=== PATIENT | female | born 1950 | race Caucasian/White ===

== ENCOUNTER 2018-12-24 09:21 | Day surgery (SDC) | payer OTHER ==
--- OUTSIDE RECORDS SUMMARY | 2018-12-24 09:25 | XMS REPORT | Clinical Summary ---
:1950 Author Organization [facility] [employer] Address [address] [place] [address] Care Team Providers Name Role Phone Medardo Talavera MD Primary Care Provider Allergies No Known Allergies Medications Medication Sig Dispensed Refills Start Date End Date Status glimepiride (AMARYL) 4 TK 1 T PO BID. 1 12/07/2016 Active MG tablet LANTUS SOLOSTAR 100 Inject 30 Units 1 10/22/2016 Active unit/mL injection (pen) under the skin daily before lunch. levothyroxine TK 1 T PO QD in 1 10/01/2016 Active (SYNTHROID, LEVOXYL) 125 the AM. mcg tablet lisinopril TK 1 T PO 1 X 1 12/05/2016 Active (PRINIVIL,ZESTRIL) 5 mg daily in the AM. tablet metFORMIN (GLUCOPHAGE) TK 1 T PO BID. 1 12/07/2016 Active 1,000 mg tablet simvastatin (ZOCOR) 40 TK 1 T PO HS. 1 11/21/2016 Active MG tablet multivitamin with Take 1 tablet by 0 Active minerals tablet mouth daily. fenofibrate (LOFIBRA) 54 TK 1 T PO QD. 2 03/17/2017 Active MG tablet gabapentin (NEURONTIN) TK 1 C PO TID. 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 Diabetes 12/16/2016 Thyroid disease 12/16/2016 Family History Medical History Relation Name Comments Heart disease Father Diabetes Mother Gallbladder disease Mother Relation Name Status Comments Father Mother Social History Tobacco Use Types Packs/Day Years Used Date Former Smoker Cigarettes 1 40 Quit: 12/19/2004 Smokeless Tobacco: Never Used Tobacco Cessation: Counseling Given: No Alcohol Use Drinks/Week oz/Week Comments No Sex Assigned at Date Recorded Not on file Job Start Date Occupation Industry Not on file Not on file Not on file Travel History Travel Start Travel End No recent travel history available. Last Filed Vital Signs Not on file Plan of Treatment Health Maintenance Due Date Last Done Comments DIABETIC RETINAL EYE EXAM 1950 DIABETIC FOOT EXAM 1961 URINE MICROALBUMIN 1961 BREAST CANCER SCREENING 2001 COLON CANCER SCREENING 2001 SHINGLES VACCINES (#1) 2001 65+ PNEUMOCOCCAL VACCINE (1 of 2 - PCV13) 2016 PNEUMOCOCCAL POLYSACCHARIDE VACCINE AGE 65 AND OVER 2016 INFLUENZA VACCINE 03/07/2019 Implants Implanted Type Area Computer Programmer Chief Device Shelf Model / Identifier Expiration Serial / Date Lot Kit Putty Bone 1.5ml Mastergraft - [id number] Human Tissue Anterior: MEDTRONIC 03/06/2020 [id number] / Implanted: Qty: 1 on 01/04/2017 by Rob Morris MD Implants Spine SPINAL AND / Cervical BIOLOGICS [id number] Putty Clgn Mastergraft Cer 0.75cc - [id number] Human Tissue Anterior: [employer]TR[employer] 03/06/2020 [id number] / Implanted: Qty: 1 on 01/04/2017 by Rob Morris MD Implants Spine SPINAL AND / Cervical BIOLOGICS [id number] Cage Anatomic Ptc [id number] - [id number] - [id number] IPM IMPLANT Anterior: MEDTRONIC 10/13/2024 [id number] / Implanted: Qty: 1 on 01/04/2017 by Rob Morris MD DEVICES Spine SOFAMOR DANEK [id number] / Cervical 75DK Cage [id number] Anatomic Ptc [id number] - [id number] - [id number] IPM IMPLANT Anterior: MEDTRONIC 08/11/2024 [id number] / Implanted: Qty: 1 on 01/04/2017 by Rob Morris MD DEVICES Spine SOFAMOR DANEK [id number] / Cervical 53DB Cage Anatomic Ptc [id number] - [id number] - [id number] IPM IMPLANT Anterior: MEDTRONIC 10/13/2024 [id number] / Implanted: Qty: 1 on 01/04/2017 by Rob Morris MD DEVICES Spine SOFAMOR DANEK [id number] / Cervical 75DK Pin Distrctn Murdock 12mm Strl - [id number] Neurosurgical Anterior: AESCULAP SPINE 09/06/2021 [id number] / Implanted: Qty: 3 on 01/04/2017 by Rob Morris MD Implants Spine / Cervical [id number] Plate Cerv 62.5mm Vesper Elite - [id number] Spinal Implants N/A: N/A MEDTRONIC [id number] / Implanted: Qty: 1 on 01/04/2017 by Rob Morris MD SPINAL AND / BIOLOGICS Screw Spinal Slf-Drl V-Ang 4x16mm - [id number] Spinal Implants N/A: N/A [employer]IC [id number] / Implanted: Qty: 1 on 01/04/2017 by Rob Morris MD SPINAL AND / BIOLOGICS Screw Spinal Slf-Drl V-Ang 4x16mm - [id number] Spinal Implants N/A: N/A MEDTRONIC [id number] / Implanted: Qty: 7 on 01/04/2017 by Rob Morris MD SPINAL AND / BIOLOGICS Matrix Hmstc Floseal 10ml W/ Humn F2 - [id number] Surgical Anterior: CHUNG 06/06/2018 [id number] / Implanted: Qty: 1 on 01/04/2017 by Rob Morris MD Implants; Spine BIOSCIENCE / Expanders; Cervical [id number] Extenders; Surgical Wires Results Not on fileafter 12/23/2017 Guarantor Name Account Type Relation to Date of Phone Billing Patient Address Viridiana Vital Personal/Family Self 1950 [phone] [address] (Home) [place] [address] Advance Directives Patient has advance care planning documents, and code status on file. For more information, please contact:[place] [address] Code Status Date Activated Date Inactivated Comments Full Code 01/04/2017 1:42 PM 01/06/2017 7:24 PM Code Status decision reached by: Patient
[2018-12-24] MEDS ORDERED: NA CHLORIDE 0.9% 500 ML ONE (10:03)
[2018-12-24] MEDS ORDERED: PHENYLEPHRINE 10% OPTH 5ML ONE (10:03)
[2018-12-24] MEDS ORDERED: LIDOCAINE 2% MPF 5 ML VIAL ONE (10:03)
[2018-12-24] MEDS ORDERED: CYCLOPENTOLATE 1% OPTH 2 ML ONE (10:04)
[2018-12-24] MEDS ORDERED: TETRACAINE HCL 0.5% 4ML OPTH ONE (10:04)
[2018-12-24] MEDS ORDERED: BUPIVACAINE 0.25% PF 10 ML VIAL ONE (10:04)
[2018-12-24] MEDS ORDERED: CYCLOPENTOLATE 1% OPTH 2 ML OPTH ONE ×2 (10:08→10:13)
[2018-12-24] MEDS ORDERED: PHENYLEPHRINE 10% OPTH 5ML OPTH ONE ×2 (10:08→10:13)
[2018-12-24] MEDS ORDERED: NS 0.9% VIAL 10 ML ONE (10:52)
[2018-12-24] MEDS ORDERED: DUOVISC 1 KIT OPTH ONE (10:52)
[2018-12-24] MEDS ORDERED: MOXIFLOXACIN HCL 10 DROPS/ML **OR USE OPTH ONE (10:53)
[2018-12-24] MEDS ORDERED: EPINEPHRINE/PF 1 MG/ML AMP ONE ×2 (10:53→13:26)
[2018-12-24] MEDS: EPINEPHRINE/PF 1 MG/ML AMP ONE ×2 (11:03→11:36)
[2018-12-24] MEDS: BALANCED SALT IRRIG PLAIN 500 ML BTL IRR ONE ×2 (11:03→11:36)
[2018-12-24] MEDS ORDERED: LIDOCAINE 1% MPF 5 ML VIAL ONE (11:35)
[2018-12-24] MEDS ORDERED: PROPOFOL 200 MG/20 ML VIAL IV ONE (11:35)
--- NOTE | 2018-12-24 12:01 | P.BOP ---
Preoperative diagnosis: Nuclear sclerotic and cortical cataract OD Postoperative diagnosis: Same Primary procedure: Phacoemulsification with IOL OD Estimated blood loss: None Anesthesia: Local (Subtenon's infusion with anesthesia for cataract surgery) Complications: None Implants: [id number] +22.0 Transferred to: Other (Day surgery) Condition: Good
[2018-12-24 15:49] VITALS: BP 101/52; TEMP 98.5; O2SAT 100
--- NOTE | 2018-12-24 22:54 | OP ---
Date of Procedure: 12/24/2018 Surgeon: Cherie Zepeda MD Anesthesiologist: 1. Benito Jose CRNA. 2. Miguel A Delgado MD. Preoperative Diagnosis: Nuclear sclerotic cataract and cortical cataract, right eye. Operation Performed: Phacoemulsification with intraocular lens implant, right eye. Anesthesia: Per cataract surgery. Complications: None. Description Of Procedure: In day surgery, the patient was prepped with Betadine and draped. A conju nctival incision was made in the inferior nasal quadrant with Jemima scissors. A sub-Tenon block c onsisting of a 1:1 mixture of 2% Xylocaine and 0.25% bupivacaine was placed through the conjunctival incision with a blunt cannula. A Honan balloon was placed over the eye and the patient was transferr ed to the operating room. In the operating room the patient was prepped and draped in the usual sterile fashion for ophthalmic surgery. A lid speculum was placed in the right eye. Two paracentesis sites were made superiorly an d inferiorly in the limbal cornea. Viscoat was placed in the anterior chamber and a crescent blade w as used to make a corneal groove and tunnel, and a keratome was used to enter the anterior chamber. Provisc was placed in the anterior chamber and a 360 degree capsulotomy was performed with a cystitom e. The lens was hydrodissected with BSS and rotated freely. The lens was removed with a stop and ch op technique. 9.3 phaco CDE was used to remove the lens. Residual cortex was removed with the irrig ation and aspiration. Provisc was placed in the capsular bag. A ZCB00 +22.0 lens was placed in the capsular bag without complications. Irrigation and aspiration was used to remove residual viscoelast ic. The paracentesis sites were hydrated with BSS. The wound and paracentesis sites were inspected and found to be watertight. Vigamox 0.07 cc was placed intracamerally at the end of the procedure. The eye was irrigated with balanced salt solution. The eye was patched with a soft cotton patch and Hayden metal shield. The patient was returned to day surgery in good condition. Comments: 1:5000 epinephrine was placed prior to Viscoat and throughout the procedure. Discharge Instructions: Ms. Vital is discharged to home in good condition and is to follow up with Dr. Zepeda in the morning. JHL/TITUS Voice ID: [id number] Report ID: [id number]
== END 2018-12-24 13:07 | disposition home or self-care (01) ==
LOC: OR 09:21
PROVIDERS: ATTEND Ophthalmology Retina Specialist
PROC: 08RJ3JZ Replacement of Right Lens with Synthetic Substitute, Percutaneous Approach (ICD-10-PCS; principal; 2018-12-24 10:30)
DX: H25.11 Age-related nuclear cataract, right eye (principal); H25.011 Cortical age-related cataract, right eye; Z87.891 Personal history of nicotine dependence; E11.9 Type 2 diabetes mellitus without complications; E78.00 Pure hypercholesterolemia, unspecified; E07.9 Disorder of thyroid, unspecified; I10 Essential (primary) hypertension; G25.81 Restless legs syndrome; Z79.4 Long term (current) use of insulin; Z79.82 Long term (current) use of aspirin; Z79.899 Other long term (current) drug therapy
CPT/HCPCS: 66984; 82962; J2704; J0171 ×3

== ENCOUNTER 2024-10-06 19:16 | Emergency (ER) | payer OTHER ==
[2024-10-06] MEDS ORDERED: MORPHINE 2 MG/ML SYR ONE (19:54)
[2024-10-06 19:58] LABS: Absolute Basophils 0.1 K/uL (0-0.5); Absolute Lymphocytes (CBC) 1.3 K/uL (0.7-4.9); Absolute Monocytes 0.6 K/uL (0.1-1.3); Absolute Neutrophil 8.6 K/uL (1.8-8.0); Basophils % 0.5 % (0-1.3); Eosinophils % 0.4 % (0-4.4); Hematocrit 40.8 % (36.0-45.0); Hemoglobin 13.6 g/dL (12.0-15.0); Lymphocytes % 12.2 % (15.3-44.8); MCH 28.3 pg (27.0-35.0); MCHC 33.4 g/dL (32.0-36.0); MCV 84.7 fL (80-100); MPV 8.4 fL (7.6-11.3); Monocytes % 5.9 % (3.3-12.3); Nucleated Red Blood Cells % 0.1 % (0-0); Platelets 297 thou/uL (152-406); RBC Red Blood Cell Count 4.81 M/uL (3.86-4.86); Red Cell Distribution Width 14.6 % (12.1-15.2)
[2024-10-06] MEDS ORDERED: ONDANSETRON 4 MG/2 ML VIAL ONE (19:58)
[2024-10-06 20:06] LABS: PT Prothrombin Time 10.7 SECONDS (10.0-13.0); Protime INR 0.94
--- NOTE | 2024-10-06 20:10 | RAD REPORT ---
EXAMINATION: ONE VIEW CHEST XR CLINICAL INDICATION: CHEST PAIN TECHNIQUE: Frontal chest projection is submitted. Examination is limited by patient positioning and t echnique. COMPARISON: 11/30/2021 FINDINGS: Interstitial markings are mildly prominent. No focal consolidation typical of bacterial pneumonia. Th e heart is upper limit of normal in size. No displaced fractures identified. Cervical hardware plate. IMPRESSION: Consider viral pneumonitis or reactive airway disease.
[2024-10-06 20:18] LABS: ALT/SGPT 29 U/L (13-56); AST/SGOT 22 U/L (15-37); Albumin 3.6 g/dL (3.4-5.0); Albumin/Globulin Ratio 0.9 (1.1-1.8); Alkaline Phosphatase 85 U/L (45-117); Anion Gap 7.3 mEq/L (5.0-15.0); BUN Blood Urea Nitrogen 28 mg/dL (7-18); Bicarbonate 31 mEq/L (21-32); Bilirubin Total 0.3 mg/dL (0.2-1.0); Globulin 3.9 g/dL (2.3-3.5); Glomerular Filtration Rate 56 ml/min (=/>90); Glucose Level 147 mg/dL (74-106); Magnesium 2.2 mg/dL (1.6-2.4); NT PRO-BNP 139 pg/mL (<125); Potassium 4.3 mEq/L (3.5-5.1); Protein, Total 7.5 g/dL (6.4-8.2); Sodium Level 138 mEq/L (136-145); Troponin High Sensitivity 5.1 pg/mL (<58.9)
[2024-10-06 20:22] LABS: Bilirubin Direct < 0.2 mg/dL (0-0.2); Bilirubin Indirect, Calculated 0.1 mg/dL (0.2-0.8)
[2024-10-06 20:49] LABS: Influenza A Ag Negative; Influenza B Ag Negative; SARS-CoV-2 Antigen Rapid Res Negative (Negative)
--- NOTE | 2024-10-06 21:03 | RAD REPORT ---
EXAMINATION: CTA CHEST PE CLINICAL INDICATION: CHEST PAIN TECHNIQUE: This examination was performed according to an angiographic protocol with 3D post-processi ng. This involves 3D reconstructions, MIPs, volume rendered images and/or shaded surface rendering. One or more of the following dose reduction techniques were used: Automated exposure control, adjustm ent of the mA and/or kV according to patient size, and/or iterative reconstruction. Unless otherwise specified, incidental findings do not require dedicated imaging follow-up. COMPARISON: No prior exam. FINDINGS: PULMONARY ARTERIES: Normal caliber. No evidence of pulmonary emboli to the subsegmental level. THORACIC AORTA: Normal caliber and configuration. LUNGS: No evidence of airspace or interstitial process. No nodules. PLEURA: No pleural effusion. No pneumothorax. MEDIASTINUM AND LYMPH NODES: No mediastinal mass or fluid collection. Normal size mediastinal, hilar, and axillary lymph nodes. OSSEOUS STRUCTURES AND CHEST WALL: Intact. UPPER ABDOMEN: No significant abnormalities. IMPRESSION: No evidence of pulmonary emboli to the subsegmental level.
[2024-10-06] MEDS ORDERED: ALBUTEROL 2.5 MG/3 ML NEB SOL ONE (21:14)
[2024-10-06] MEDS ORDERED: IPRATROPIUM BROM 0.5MG/2.5ML ONE (21:14)
[2024-10-06] MEDS ORDERED: KETOROLAC 30 MG/ML INJ ONE (21:15)
--- NOTE | 2024-10-06 21:24 | EDPHYS ---
Physician Documentation [facility] Name: Viridiana Vital Age: 74 yrs Sex: Female : 1950 Arrival Date: 10/06/2024 Time: 19:16 Bed 18 Private MD: ED Physician Flory Park HPI: 10/06 19:58 This 74 yrs old Female presents to ER via Ambulatory with complaints of UPPER BACK sp3 PAIN, Epigastric Pain, Chest Pain. 19:58 74-year-old female with history of diabetes now presents with epigastric pain, chest sp3 pain radiating to her back. The radiation goes to the mid back. She denies any fever, neck pain, lower abdominal pain, vomiting, diarrhea, or any other signs or symptoms on ROS at this time. Denies any travel history or prolonged immobilization. No prior history of DVT or PE or TAD.. Historical: - Allergies: 19:30 No Known Allergies; bm8 - Home Meds: 19:30 Unable to obtain [Active]; bm8 - PMHx: 19:30 Diabetes mellitus; bm8 - PSHx: 19:30 neck; section; bm8 - Immunization history:: Adult Immunizations up to date. - Infectious Disease History:: Denies. - Social history:: Smoking status: Patient denies any tobacco usage or history of. ROS: 19:58 Constitutional: Negative for fever, chills, and weight loss, Eyes: Negative for injury, sp3 pain, redness, and discharge, ENT: Negative for injury, pain, and discharge, Neck: Negative for injury, pain, and swelling, Respiratory: Negative for shortness of breath, cough, wheezing, and pleuritic chest pain, : Negative for injury, bleeding, discharge, and swelling, MS/Extremity: Negative for injury and deformity, Skin: Negative for injury, rash, and discoloration, Neuro: Negative for headache, weakness, numbness, tingling, and seizure, Psych: Negative for depression, anxiety, suicide ideation, homicidal ideation, and hallucinations, Allergy/Immunology: Negative for hives, rash, and allergies, Endocrine: Negative for neck swelling, polydipsia, polyuria, polyphagia, and marked weight changes, Hematologic/Lymphatic: Negative for swollen nodes, abnormal bleeding, and unusual bruising, 19:58 All other systems are negative, Exam: 19:59 Constitutional: This is a well developed, well nourished patient who is awake, alert, sp3 and in no acute distress. Head/Face: Normocephalic, atraumatic. Eyes: Pupils equal round and reactive to light, extra-ocular motions intact. Lids and lashes normal. Conjunctiva and sclera are non-icteric and not injected. Cornea within normal limits. Periorbital areas with no swelling, redness, or edema. Neck: Trachea midline, no thyromegaly or masses palpated, and no cervical lymphadenopathy. Supple, full range of motion without nuchal rigidity, or vertebral point tenderness. No Meningismus. Chest/axilla: Normal chest wall appearance and motion. Nontender with no deformity. No lesions are appreciated. Cardiovascular: Regular rate and rhythm with a normal S1 and S2. No gallops, murmurs, or rubs. Normal PMI, no JVD. No pulse deficits. Respiratory: Lungs have equal breath sounds bilaterally, clear to auscultation and percussion. No rales, rhonchi or wheezes noted. No increased work of breathing, no retractions or nasal flaring. Back: No spinal tenderness. No costovertebral tenderness. Full range of motion. Skin: Warm, dry with normal turgor. Normal color with no rashes, no lesions, and no evidence of cellulitis. MS/ Extremity: Pulses equal, no cyanosis. Neurovascular intact. Full, normal range of motion. Neuro: Awake and alert, GCS 15, oriented to person, place, time, and situation. Cranial nerves II-XII grossly intact. Motor strength 5/5 in all extremities. Sensory grossly intact. Cerebellar exam normal. Normal gait. 19:59 Abdomen/GI: Mild pain to palpation epigastrically however patient's pain is worse when she lays down without any palpation from me. Lung sounds equal bilaterally. Cardiac exam is normal., 20:08 ECG was reviewed by the Attending Physician. EKG demonstrates sinus bradycardia 56 bpm sp3 with normal intervals, normal QRS, normal axis, and normal ST/T-segment's without evidence of acute ischemia. Vital Signs: 19:29 BP 129 / 103; Pulse 61; Resp 18; Temp 97.6; Pulse Ox 100% ; Weight 89.36 kg; Height 5 bm8 ft. 6 in. ; Pain 8/10; 20:00 BP 121 / 54; Pulse 60; Resp 12; Pulse Ox 96% ; me1 21:00 BP 154 / 52; Pulse 55; Resp 13; Pulse Ox 100% ; me1 21:42 Pain 3/10; me1 21:42 BP 148 / 68; Pulse 63; Resp 16; Temp 98.2; Pulse Ox 93% on R/A; me1 19:29 Body Mass Index 31.80 (89.36 kg, 167.64 cm) bm8 19:29 Pain Scale: Adult bm8 21:42 Pain Scale: Adult me1 MDM: 19:20 Medical Screening Exam initiated sp3 19:59 Data reviewed: vital signs, nurses notes, lab test result(s), EKG, radiologic studies. sp3 ED course: 74-year-old female with diabetes now with epigastric pain rating to the mid back. Differential diagnosis is broad and includes acute coronary syndrome, GI pathology including biliary colic, cholecystitis, and to a lesser degree pneumonia, pleurisy, PE, TAD. Will obtain EKG, CT chest, general labs, swabs and general supportive care. Disposition pending workup and patient course. Morphine and Zofran for pain control.. 21:22 ED course: Full workup negative except for viral pneumonitis. Will give ketorolac IV sp3 and nebulizer treatment and send patient home on p.o. steroids, tramadol and Nebules since patient's has COPD and she has a nebulizer at home.. 10/06 19:39 Order name: Basic Metabolic Panel; Complete Time: 20:24 3 10/06 19:39 Order name: CBC with Diff; Complete Time: 20:24 sp3 10/06 19:39 Order name: LFT's; Complete Time: 20:24 sp3 10/06 19:39 Order name: Magnesium; Complete Time: 20:24 sp3 10/06 19:39 Order name: NT PRO-BNP; Complete Time: 20:24 sp3 10/06 19:39 Order name: PT-INR; Complete Time: 20:24 sp3 10/06 19:39 Order name: Troponin HS; Complete Time: 20:24 3 10/06 20:00 Order name: COVID-19 Ag + Flu A+B Ag; Complete Time: 20:51 sp3 10/06 19:39 Order name: XRAY Chest (1 view); Complete Time: 20:24 sp3 10/06 20:00 Order name: CT Chest For PE Angio; Complete Time: 21:07 sp3 10/06 19:39 Order name: Cardiac monitoring; Complete Time: 19:52 sp3 10/06 19:39 Order name: EKG - Nurse/Tech; Complete Time: 19:52 sp3 10/06 19:39 Order name: IV Saline Lock; Complete Time: 19:51 sp3 10/06 19:39 Order name: Labs collected and sent; Complete Time: 19:51 sp3 10/06 19:39 Order name: O2 Per Protocol; Complete Time: 19:52 sp3 10/06 19:39 Order name: O2 Sat Monitoring; Complete Time: 19:52 sp3 Administered Medications: 20:02 Drug: Ondansetron IVP 4 mg IVP once; over 2 minutes Route: IVP; Site: right antecubital;me1 21:13 Follow up: Response: No adverse reaction; Nausea is decreased me1 20:03 Drug: morphine IVP or IV 2 mg IVP once over 4 mins Route: IVP; Infused Over: 4 mins; me1 Site: right antecubital; 21:13 Follow up: Response: No adverse reaction; Pain is decreased me1 21:20 Drug: DuoNeb Nebulize (3:1) (2.5 mg - 0.5 mg) 3 ml Nebulizer once Route: Nebulizer; me1 21:42 Follow up: Response: No adverse reaction; Wheezing diminished me1 21:20 Drug: Ketorolac IVP 15 mg IVP once Route: IVP; Site: right antecubital; me1 21:42 Follow up: Pain 3/10 Adult; Response: No adverse reaction; Pain is decreased me1 Disposition Summary: 10/06/24 21:23 Discharge Ordered Notes: Location: Home sp3 Condition: Stable sp3 Diagnosis - Viral pneumonitis, back pain sp3 Followup: sp3 - With: Private Physician - When: Upon discharge from the Emergency Department - Reason: Recheck today's complaints Discharge Instructions: - Discharge Summary Sheet sp3 - Pneumonitis sp3 Forms: - Medication Reconciliation Form sp3 - Antibiotic Education sp3 - Prescription Opioid Use sp3 - Patient Portal Instructions sp3 - Leadership Thank You Letter sp3 Prescriptions: - Albuterol Sulfate 2.5 mg /3 mL (0.083 %) Inhalation Solution for Nebulization - inhale 1 unit NEBULIZATION route every 8 hours As needed; 1 Each; Refills: 0, sp3 Product Selection Permitted - Tramadol 50 mg Oral Tablet - take 1 tablet ORAL route every 8 hours as needed; 12 tablet; Refills: 0, sp3 Product Selection Permitted - Prednisone 20 mg Oral Tablet - take 2 tablets ORAL route once daily for 5 days; 10 tablet; Refills: 0, Product sp3 Selection Permitted Signatures: Dispatcher [employer] EDMS Flory Park MD MD sp3 Rosette Esteban, RN RN me1 Bowen Mckinney, RN RN bm8 Corrections: (The following items were deleted from the chart) 19:39 19:39 BASIC METABOLIC PANEL+C.LAB.BRZ ordered. EDMS EDMS 19:39 19:39 CBC+H.LAB.BRZ ordered. EDMS EDMS 19:39 19:39 HEPATIC FUNCTION+C.LAB.BRZ ordered. EDMS EDMS 19:39 19:39 MAGNESIUM+C.LAB.BRZ ordered. EDMS EDMS 19:39 19:39 PROBNP+C.LAB.BRZ ordered. EDMS EDMS 19:39 19:39 PROTIME (+INR)+COAG.LAB.BRZ ordered. EDMS EDMS 19:39 19:39 Troponin High Sensitivity+C.LAB.BRZ ordered. EDMS EDMS 19:39 19:39 Chest Single View+RAD.RAD.BRZ ordered. EDMS EDMS 20:01 20:01 Chest For PE Angio+CT.RAD.BRZ ordered. EDMS EDMS
--- NOTE | 2024-10-06 21:24 | ER ---
Nurse's Notes [facility] Name: Viridiana Vital Age: 74 yrs Sex: Female : 1950 Arrival Date: 10/06/2024 Time: 19:16 Bed 18 Private MD: Diagnosis: Viral pneumonitis, back pain Presentation: 10/06 19:29 Chief complaint: Patient states: Burning back pain that radiates to chest since 1300. bm8 Coronavirus screen: At this time, the client does not indicate any symptoms associated with coronavirus-19. Ebola Screen: Patient negative for fever greater than or equal to 101.5 degrees Fahrenheit, and additional compatible Ebola Virus Disease symptoms Patient denies exposure to infectious person. Patient denies travel to an Ebola-affected area in the 21 days before illness onset. No symptoms or risks identified at this time. Initial Sepsis Screen: Does the patient meet any 2 criteria? No. Patient's initial sepsis screen is negative. Does the patient have a suspected source of infection? No. Patient's initial sepsis screen is negative. Risk Assessment: Do you want to hurt yourself or someone else? Patient reports no desire to harm self or others. Onset of symptoms was October 06, 2024 at 13:00. 19:29 Method Of Arrival: Ambulatory bm8 19:29 Acuity: NIMCO 2 bm8 Triage Assessment: 19:30 General: Appears in no apparent distress. uncomfortable, Behavior is calm, cooperative, bm8 appropriate for age. Pain: Complains of pain in back Pain radiates to chest Pain currently is 8 out of 10 on a pain scale. Quality of pain is described as burning, sharp, shooting. EENT: No deficits noted. No signs and/or symptoms were reported regarding the EENT system. Neuro: No deficits noted. Level of Consciousness is awake, alert, obeys commands, Oriented to person, place, time, situation, Appropriate for age. Cardiovascular: Reports chest pain, Heart tones S1 S2 present Capillary refill < 3 seconds in bilateral fingers Patient's skin is warm and dry. Respiratory: Airway is patent Trachea midline Respiratory effort is even, unlabored, Respiratory pattern is regular, symmetrical, Breath sounds are clear bilaterally. GI: Abdomen is flat, non-distended, Reports epigastric pain, indigestion. Historical: - Allergies: 19:30 No Known Allergies; bm8 - Home Meds: 19:30 Unable to obtain [Active]; bm8 - PMHx: 19:30 Diabetes mellitus; bm8 - PSHx: 19:30 neck; section; bm8 - Immunization history:: Adult Immunizations up to date. - Infectious Disease History:: Denies. - Social history:: Smoking status: Patient denies any tobacco usage or history of. Screenin:40 [facility] ED Fall Risk Assessment (Adult) History of falling in the last 3 months, me1 including since admission No falls in past 3 months (0 pts) Confusion or Disorientation No (0 pts) Intoxicated or Sedated No (0 pts) Impaired Gait No (0 pts) Mobility Assist Device Used No (0 pt) Altered Elimination No (0 pt) Score/Fall Risk Level 0 - 2 = Low Risk Maintained a safe environment, Provided non-skid footwear, Hourly rounding (assess needs \T\ fall precautionary measures) done. Abuse screen: Denies threats or abuse. Nutritional screening: No deficits noted. Tuberculosis screening: No symptoms or risk factors identified. Assessment: 19:40 General: Appears uncomfortable, well groomed, well developed, well nourished, Behavior me1 is calm, cooperative, appropriate for age, Reports Burning back pain that radiates to chest since 1300. Pain: Complains of pain in back Pain radiates to chest Pain currently is 9 out of 10 on a pain scale. Quality of pain is described as burning, Pain began gradually, Is continuous. Neuro: Level of Consciousness is awake, alert, obeys commands, Oriented to person, place, time, situation, Appropriate for age. Cardiovascular: Patient's skin is warm and dry. Respiratory: Airway is patent Respiratory effort is even, unlabored, Respiratory pattern is regular, symmetrical. GI: Reports upper abdominal pain, nausea, vomiting. : No signs and/or symptoms were reported regarding the genitourinary system. EENT: No signs and/or symptoms were reported regarding the EENT system. Derm: Skin is intact, is healthy with good turgor, Skin is pink, warm \T\ dry. Musculoskeletal: No signs and/or symptoms reported regarding the musculoskeletal system. Vital Signs: 19:29 BP 129 / 103; Pulse 61; Resp 18; Temp 97.6; Pulse Ox 100% ; Weight 89.36 kg; Height 5 bm8 ft. 6 in. ; Pain 8/10; 20:00 BP 121 / 54; Pulse 60; Resp 12; Pulse Ox 96% ; me1 21:00 BP 154 / 52; Pulse 55; Resp 13; Pulse Ox 100% ; me1 21:42 Pain 3/10; me1 21:42 BP 148 / 68; Pulse 63; Resp 16; Temp 98.2; Pulse Ox 93% on R/A; me1 19:29 Body Mass Index 31.80 (89.36 kg, 167.64 cm) bm8 19:29 Pain Scale: Adult bm8 21:42 Pain Scale: Adult nh1 ED Course: 19:19 Patient arrived in ED. gm2 19:20 Flory Park MD is Attending Physician. sp3 19:30 Triage completed. bm8 19:30 Arm band placed on right wrist. bm8 19:40 Patient has correct armband on for positive identification. Bed in low position. Call [facility] light in reach. Side rails up X 1. Provided Education on: POC. Verbalized understanding.. Client placed on continuous cardiac and pulse oximetry monitoring. NIBP monitoring applied. labor trainer on. Pulse ox on. NIBP on. 19:40 No provider procedures requiring assistance completed. me1 19:44 Rosette Esteban, RN is Primary Nurse. me1 19:52 Basic Metabolic Panel Sent. me1 19:52 CBC with Diff Sent. me1 19:52 LFT's Sent. me1 19:52 Magnesium Sent. me1 19:52 NT PRO-BNP Sent. me1 19:52 PT-INR Sent. me1 19:52 Troponin HS Sent. me1 19:52 Initial lab(s) drawn, by nh, sent to lab. EKG done, by ED staff, reviewed by Flory Park MD. Inserted saline lock: 22 gauge in right antecubital area, using aseptic technique. 20:05 XRAY Chest (1 view) In Process Unspecified. EDMS 20:55 CT Chest For PE Angio In Process Unspecified. EDMS 21:49 IV discontinued, intact, bleeding controlled, No redness/swelling at site. Pressure me1 dressing applied. Administered Medications: 20:02 Drug: Ondansetron IVP 4 mg IVP once; over 2 minutes Route: IVP; Site: right antecubital;me1 21:13 Follow up: Response: No adverse reaction; Nausea is decreased me1 20:03 Drug: morphine IVP or IV 2 mg IVP once over 4 mins Route: IVP; Infused Over: 4 mins; me1 Site: right antecubital; 21:13 Follow up: Response: No adverse reaction; Pain is decreased me1 21:20 Drug: DuoNeb Nebulize (3:1) (2.5 mg - 0.5 mg) 3 ml Nebulizer once Route: Nebulizer; nh1 21:42 Follow up: Response: No adverse reaction; Wheezing diminished me1 21:20 Drug: Ketorolac IVP 15 mg IVP once Route: IVP; Site: right antecubital; nh1 21:42 Follow up: Pain 3/10 Adult; Response: No adverse reaction; Pain is decreased me1 Medication: 19:40 VIS not applicable for this client. [facility] Outcome: 21:23 Discharge ordered by . sp3 21:49 Discharged to home ambulatory, with family, [facility] 21:49 Condition: stable 21:49 Discharge instructions given to patient, family, Instructed on discharge instructions, follow up and referral plans. medication usage, Demonstrated understanding of instructions, follow-up care, medications, Prescriptions given X 3, 22:03 Patient left the ED. [facility] Signatures: Dispatcher [employer] EDFlory Helms MD MD sp3 Rosette Esteban RN RN nh1 Ericka Brito 2 Bowen Mckinney RN RN bm8 Corrections: (The following items were deleted from the chart) 21:20 19:29 Chief complaint: Patient states: Burning back pain that radiates to chest since nh1 1300 bm8
[2024-10-06 22:57] VITALS: BP 148/68; TEMP 98.2; O2SAT 93
--- NOTE | 2024-10-07 12:04 | EKG ---
Test Date: 2024-10-06 Test Time: 19:37:29 [employer] Supervisor: SEEMA MEASUREMENT RESULTS: Intervals: Rate: 56 NM: 178 QRSD: 86 QT: 388 QTc: 374 [place]: P: 68 NM: 178 QRS: 78 T: 53 INTERPRETIVE STATEMENTS: Sinus bradycardia Low voltage QRS Borderline ECG Compared to ECG 11/30/2021 12:29:15 Sinus rhythm no longer present Electronically Signed On 10-07-24 12:02:26 TRAVELING SALES EXECUTIVE by Edis Pham
== END 2024-10-06 22:03 | disposition home or self-care (01) ==
LOC: ER 19:16
DX: J12.9 Viral pneumonia, unspecified (principal); M54.9 Dorsalgia, unspecified; Z11.52 Encounter for screening for COVID-19
CPT/HCPCS: 93005; 85025; 80048; 36415; 83735; 85610; 80076; 84484; 83880; 71275; 71045; 96375; 96374; 99285; 87428; Q9967; J7613; J7644; J2270; J2405

== ENCOUNTER 2024-10-25 15:07 | Emergency (ER) | payer OTHER ==
[2024-10-25] MEDS ORDERED: LIDOCAINE 1% MPF 30 ML VIAL ONE (15:10)
--- NOTE | 2024-10-25 15:47 | EDPHYS ---
Physician Documentation [facility] Name: Viridiana Vital Age: 74 yrs Sex: Female : 1950 Arrival Date: 10/25/2024 Time: 15:07 Bed 2 Private MD: ED Physician Vicki Temple HPI: 10/25 17:15 This 74 yrs old Female presents to ER via EMS with complaints of Finger gb1 Injury. 17:15 74-year-old female was walking her dog and it was tied to a rope and he ran around a gb1 tree and the rope was caught tight around the fifth digit of the right hand. Patient fell to the ground and hit her head as well.. Historical: - Allergies: 15:19 No Known Allergies; ss - PMHx: 15:19 diabetes mellitus; ss - PSHx: 15:19 section; neck; ss - Immunization history:: Last tetanus immunization: unknown. - Infectious Disease History:: Denies. Exam: 17:15 Constitutional: This is a well developed, well nourished patient who is awake, alert, gb1 and in no acute distress. Head/Face: Normocephalic, atraumatic. Eyes: Pupils equal round and reactive to light, extra-ocular motions intact. Lids and lashes normal. Conjunctiva and sclera are non-icteric and not injected. Cornea within normal limits. Periorbital areas with no swelling, redness, or edema. Neck: Trachea midline, no thyromegaly or masses palpated, and no cervical lymphadenopathy. Supple, full range of motion without nuchal rigidity, or vertebral point tenderness. No Meningismus. Chest/axilla: Normal chest wall appearance and motion. Nontender with no deformity. No lesions are appreciated. Cardiovascular: Regular rate and rhythm with a normal S1 and S2. No gallops, murmurs, or rubs. Normal PMI, no JVD. No pulse deficits. Respiratory: Lungs have equal breath sounds bilaterally, clear to auscultation and percussion. No rales, rhonchi or wheezes noted. No increased work of breathing, no retractions or nasal flaring. Abdomen/GI: Soft, non-tender, with normal bowel sounds. No distension or tympany. No guarding or rebound. No evidence of tenderness throughout. Back: No spinal tenderness. No costovertebral tenderness. Full range of motion. Skin: Warm, dry with normal turgor. Normal color with no rashes, no lesions, and no evidence of cellulitis. MS/ Extremity: There is a tourniquet from the rope that is because of degloving injury of the left fifth digit at the base of the metacarpal joint. There is visible bone exposed. Vital Signs: 15:19 BP 146 / 123; Pulse 68; Resp 16; Temp 97.6(O); Pulse Ox 97% on R/A; Weight 87.54 kg; ss Height 5 ft. 5 in. ; Pain 3/10; 19:17 BP 123 / 79; Pulse 62; Resp 17 S; Pulse Ox 98% on R/A; ha1 15:19 Body Mass Index 32.12 (87.54 kg, 165.1 cm) ss 15:19 Pain Scale: Adult ss MDM: 15:23 Medical Screening Exam initiated gb 17:15 Data reviewed: vital signs, nurses notes, lab test result(s), radiologic studies, CT gb1 scan, plain films. 17:15 ED course: 74-year-old female with a left fifth digit degloving injury secondary to a gb1 rope tourniquet around that finger. There is no occult fracture but there is bone exposed. I have prescribed prophylactic Unasyn I discussed the case with the on-call hand surgeon at [facility] who recommended transfer to [facility] for operative repair tomorrow. Patient is n.p.o. after midnight and since she is a insulin-dependent diabetic with poor blood sugar control there is a high likelihood that the patient with wound healing may result in an amputation of that digit. I discussed the plan of care with the patient and discussed transfer with her as well to [facility] to see .. 10/25 15:26 Order name: CBC with Diff; Complete Time: 16:50 gb1 10/25 15:26 Order name: CMP; Complete Time: 16:50 gb1 10/25 15:26 Order name: Lactate w/ 2H reflex if indic.; Complete Time: 16:50 gb1 10/25 15:26 Order name: Protime (+inr); Complete Time: 16:50 gb1 10/25 15:26 Order name: Ptt, Activated; Complete Time: 16:50 gb1 10/25 16:06 Order name: ABG; Complete Time: 17:58 gb1 10/25 16:06 Order name: BETA HYDROXYBUTYRATE; Complete Time: 17:58 gb1 10/25 15:26 Order name: Hand Right 3 View XRAY; Complete Time: 17:58 gb1 10/25 15:26 Order name: CT Head Brain wo Cont; Complete Time: 16:50 gb1 10/25 15:26 Order name: EKG; Complete Time: 15:26 gb1 10/25 15:26 Order name: Accucheck; Complete Time: 16:03 gb1 10/25 15:26 Order name: Cardiac monitoring; Complete Time: 16:03 gb1 10/25 15:26 Order name: EKG - Nurse/Tech; Complete Time: 17:06 gb1 10/25 15:26 Order name: IV Saline Lock - Large Bore; Complete Time: 16:03 gb1 10/25 15:26 Order name: Labs collected and sent; Complete Time: 16:03 gb10/25 15:26 Order name: O2 Per Protocol; Complete Time: 16:03 gb10/25 15:26 Order name: O2 Sat Monitoring; Complete Time: 16:03 gb1 10/25 15:26 Order name: Vital Signs; Complete Time: 16:03 gb Administered Medications: 16:32 Drug: Ondansetron IVP 4 mg IVP once; over 2 minutes Route: IVP; Site: left forearm; ss 17:00 Follow up: Response: No adverse reaction; Pain is decreased; RASS: Alert and Calm (0) ss 16:34 Drug: morphine IVP or IV 4 mg IVP once over 4 mins Route: IVP; Infused Over: 4 mins; ss Site: left forearm; 17:04 Follow up: Response: No adverse reaction; Pain is decreased; RASS: Alert and Calm (0) ss 16:35 Drug: NS 0.9% IV 1000 ml IV at 1000 ml once; to be given as a bolus over 60 minutes ss Route: IV; Rate: 1000 ml; Site: left forearm; 17:30 Follow up: IV Status: Completed infusion; IV Intake: 1000ml ss 16:36 Drug: Ampicillin-Sulbactam Sodium IVPB 3 grams IVPB once over 30 mins; (mix in 100 mL ss NS) Route: IVPB; Infused Over: 30 mins; Site: right forearm; 17:10 Follow up: IV Status: Completed infusion; IV Intake: 100ml ss 19:10 Drug: Boostrix Tdap IM 0.5 ml IM once; as a single dose Route: IM; Site: right deltoid; ha1 19:33 Follow up: Response: Medication Administered at Departure ss 19:16 Not Given (Product Out of Stock): tetanus-diphtheria toxoidadult 0.5 ml IM once; ha1 Provide Vaccine Information Statement (VIS). Disposition Summary: 10/25/24 15:46 Transfer Ordered Notes: Transfer Location: [facility] gb1 Reason: Higher level of care gb1 Condition: Fair gb1 Problem: new gb1 Symptoms: have worsened gb1 Accepting Physician: (10/25/24 19:27) ha1 Diagnosis - Contusion of right hand gb1 Forms: - Medication Reconciliation Form gb1 - SBAR form gb1 Signatures: Dispatcher [employer] EDTrupti Xiong RN RN Chelsie Keith RN RN ha1 Vicki Temple MD MD gb1 Corrections: (The following items were deleted from the chart) 15:21 15:19 PMHx: Arthritis; ss ss 15:26 15:26 Head Brain Wo Cont+CT.RAD.BRZ ordered. EDMS EDMS 15:44 15:26 Finger-Thumb Right+RAD.RAD.BRZ ordered. EDMS EDMS 19:27 15:46 gb1 ha1
--- NOTE | 2024-10-25 15:47 | ER ---
Nurse's Notes [facility] Name: Viridiana Vital Age: 74 yrs Sex: Female : 1950 Arrival Date: 10/25/2024 Time: 15:07 Bed 2 Private MD: Diagnosis: Contusion of right hand Presentation: 10/25 15:10 Chief complaint: EMS states: Drug by dog, falling and hitting head, and causing rope to ss strangulate R 5th finger at the base. Coronavirus screen: Client denies travel out of the [place] in the last 14 days. Ebola Screen: Patient denies exposure to infectious person. Patient denies travel to an Ebola-affected area in the 21 days before illness onset. Initial Sepsis Screen: Does the patient meet any 2 criteria? No. Patient's initial sepsis screen is negative. Does the patient have a suspected source of infection? No. Patient's initial sepsis screen is negative. Risk Assessment: Do you want to hurt yourself or someone else? Patient reports no desire to harm self or others. Onset of symptoms was October 25, 2024. 15:10 Acuity: NIMCO 2 ss 15:10 Method Of Arrival: [facility] ss 15:10 Care prior to arrival: Glucose check: 394. ss Historical: - Allergies: 15:19 No Known Allergies; ss - PMHx: 15:19 diabetes mellitus; ss - PSHx: 15:19 section; neck; ss - Immunization history:: Last tetanus immunization: unknown. - Infectious Disease History:: Denies. Screenin:25 Abuse screen: Denies threats or abuse. Denies injuries from another. Nutritional ha1 screening: No deficits noted. Tuberculosis screening: No symptoms or risk factors identified. Assessment: 15:15 General: Appears in no apparent distress. Behavior is calm, cooperative. Neuro: Level ss of Consciousness is awake, alert, obeys commands, Oriented to person, place, time, situation, Water Resources Technical Officer are equal bilaterally Speech is normal. Respiratory: Airway is patent Respiratory effort is even, unlabored, Respiratory pattern is regular, symmetrical. GI: No deficits noted. Derm: Skin is fragile, is thin. Musculoskeletal: Swelling present in R 5th finger. Injury Description: Multiple skin tears noted to bilateral upper extremities. No active bleeding noted at this time. Dr. Temple at bedside to remove rope that is strangulating R 5th finger at base to R hand. Deep laceration noted to base of R 5th finger. No active bleeding noted at this time. Pt it tolerating well. 16:30 Reassessment: Wounds dressed with Kerlix, tape. .Cleansed with Saline. ss 19:17 Reassessment: Patient and/or family updated on plan of care and expected duration. Pain ha1 level reassessed. Patient is alert, oriented x 3, equal unlabored respirations, skin warm/dry/pink. Vital Signs: 15:19 BP 146 / 123; Pulse 68; Resp 16; Temp 97.6(O); Pulse Ox 97% on R/A; Weight 87.54 kg; ss Height 5 ft. 5 in. ; Pain 3/10; 19:17 BP 123 / 79; Pulse 62; Resp 17 S; Pulse Ox 98% on R/A; ha1 15:19 Body Mass Index 32.12 (87.54 kg, 165.1 cm) ss 15:19 Pain Scale: Adult ss ED Course: 15:10 Patient arrived in ED. ss 15:10 Patient has correct armband on for positive identification. Placed in gown. Bed in low ha1 position. Call light in reach. Side rails up X2. 15:14 Vicki Temple MD is Attending Physician. ec2 15:19 Triage completed. ss 15:19 Arm band placed on right wrist. ss 15:42 CT Head Brain wo Cont In Process Unspecified. EDMS 16:03 Trupti Craft, RN is Primary Nurse. ss 16:03 Inserted saline lock: 22 gauge in left antecubital area, using aseptic technique. Blood ss collected. Flushed with 10 mL NS. 16:44 Hand Right 3 View XRAY In Process Unspecified. EDMS 16:55 TC CALLED TO INITIATE TRANSFER, SPOKE WITH. ty 17:06 EKG done, by ED staff, reviewed by Vicki Temple MD. em1 17:16 [facility] CALLED TO INITIATE TRANSFER, PHONE ANSWERED AND THEN DISCONNECTED. ty 17:19 TC CALLED TO INITIATE PATIENT TRANSFER SPOKE WITH [facility] CALL ANSWERED AT [id number]. ty 17:51 TC CALLED FOR [id number]. ty 17:58 APPROVAL. ty 18:33 [facility] ETA 20 MIN. ty 19:01 Patient transferred, IV remains in place. ss 19:25 No provider procedures requiring assistance completed. ss Administered Medications: 16:32 Drug: Ondansetron IVP 4 mg IVP once; over 2 minutes Route: IVP; Site: left forearm; ss 17:00 Follow up: Response: No adverse reaction; Pain is decreased; RASS: Alert and Calm (0) ss 16:34 Drug: morphine IVP or IV 4 mg IVP once over 4 mins Route: IVP; Infused Over: 4 mins; ss Site: left forearm; 17:04 Follow up: Response: No adverse reaction; Pain is decreased; RASS: Alert and Calm (0) ss 16:35 Drug: NS 0.9% IV 1000 ml IV at 1000 ml once; to be given as a bolus over 60 minutes ss Route: IV; Rate: 1000 ml; Site: left forearm; 17:30 Follow up: IV Status: Completed infusion; IV Intake: 1000ml ss 16:36 Drug: Ampicillin-Sulbactam Sodium IVPB 3 grams IVPB once over 30 mins; (mix in 100 mL ss NS) Route: IVPB; Infused Over: 30 mins; Site: right forearm; 17:10 Follow up: IV Status: Completed infusion; IV Intake: 100ml ss 19:10 Drug: Boostrix Tdap IM 0.5 ml IM once; as a single dose Route: IM; Site: right deltoid; ha1 19:33 Follow up: Response: Medication Administered at Departure ss 19:16 Not Given (Product Out of Stock): tetanus-diphtheria toxoidadult 0.5 ml IM once; ha1 Provide Vaccine Information Statement (VIS). Medication: 18:00 Vaccine Information Statement (VIS) provided today. Questions and/or concerns ss addressed. VIS edition date: March 2021. Intake: 17:10 IV: 100ml; Total: 100ml. ss 17:30 IV: 1000ml; Total: 1100ml. ss Outcome: 15:46 ER care complete, transfer ordered by gb1 19:25 Transferred by ground EMS to [facility], Transfer form completed. ha1 X-rays sent w/ patient. 19:25 Condition: stable 19:25 Instructed on the need for transfer, Demonstrated understanding of instructions, 19:27 Patient left the ED. ha1 Signatures: Dispatcher [employer] Bryce Armstrong em1 Trupti Craft RN RN ss Chelsie Keith RN RN ha1 Enoch Jerez MD MD ec2 Vicki Temple MD MD gb1 Tayo Singleton ty Corrections: (The following items were deleted from the chart) 15:21 15:19 PMHx: Arthritis; ss ss 17:36 17:19 TC CALLED TO INITIATE PATIENT TRANSFER SPOKE WITH ty ty 19:33 19:01 No provider procedures requiring assistance completed. ss
--- NOTE | 2024-10-25 16:03 | RAD REPORT ---
EXAM: CT brain without contrast HISTORY: TRAUMA COMPARISON: None TECHNIQUE: Multiple contiguous axial images were obtained and a CT of the brain without contrast. Sag ittal and coronal reformats were performed. One or more of the following dose reduction techniques were used: Automated exposure control, adjust ment of the mA and/or kV according to patient size, and/or iterative reconstruction. FINDINGS: No evidence of hydrocephalus, intracranial hemorrhage, or extra-axial fluid collection. Mild brain atrophy with mild periventricular and deep white matter chronic microvascular ischemic ch anges present. No evidence of midline shift or areas of brain edema. The calvarium is intact. The visualized paranasal sinuses and mastoid air cells are essentially clear . IMPRESSION: No evidence of acute intracranial abnormality.
[2024-10-25] MEDS ORDERED: MORPHINE 4 MG/ML SYR ONE (16:18)
[2024-10-25] MEDS ORDERED: AMPICILLIN/SULBACTAM 3GM/VIAL ONE (16:18)
[2024-10-25] MEDS ORDERED: ONDANSETRON 4 MG/2 ML VIAL ONE (16:18)
[2024-10-25] MEDS ORDERED: NA CHLORIDE 0.9% 1,000 ML ONE (16:19)
[2024-10-25 16:25] LABS: Absolute Basophils 0.1 K/uL (0-0.5); Absolute Eosinophils 0.1 K/uL (0-0.5); Absolute Monocytes 0.6 K/uL (0.1-1.3); Basophils % 0.7 % (0-1.3); Hematocrit 42.6 % (36.0-45.0); Hemoglobin 14.4 g/dL (12.0-15.0); Lymphocytes % 11.4 % (15.3-44.8); MCH 28.4 pg (27.0-35.0); MCHC 33.8 g/dL (32.0-36.0); MCV 84.2 fL (80-100); MPV 8.5 fL (7.6-11.3); Monocytes % 6.9 % (3.3-12.3); Nucleated Red Blood Cells % 0.1 % (0-0); Platelets 337 thou/uL (152-406); RBC Red Blood Cell Count 5.06 M/uL (3.86-4.86)
[2024-10-25 16:30] LABS: Albumin 3.5 g/dL (3.4-5.0); Albumin/Globulin Ratio 0.8 (1.1-1.8); Anion Gap 8.4 mEq/L (5.0-15.0); Bilirubin Total 0.4 mg/dL (0.2-1.0); Globulin 4.3 g/dL (2.3-3.5); Potassium 4.4 mEq/L (3.5-5.1); Protein, Total 7.8 g/dL (6.4-8.2)
[2024-10-25] MEDS ORDERED: NA CHLORIDE 0.9% 100 ML ONE (16:30)
[2024-10-25 16:37] LABS: PT Prothrombin Time 10.7 SECONDS (10-13.0); PTT, Activated Partial Thromb 31.7 SECONDS (27.2-37.4); Protime INR 0.94
--- NOTE | 2024-10-25 16:53 | RAD REPORT ---
EXAM: XR RIGHT HAND HISTORY: Pain. SMASH INJURY COMPARISON: None TECHNIQUE: Multiple projections of the right hand submitted. FINDINGS: Soft tissue swelling is present affecting the fifth finger.. Multi joint moderate osteoarth ritis. Soft tissue injury/laceration suspected base of the fifth finger. No underlying fracture or foreign body.
[2024-10-25 17:35] LABS: Arterial Blood Carboxyhemoglob 0.8 % (0-1.5); Blood Gas Oxyhemoglobin 60.8 % (94-97); Blood Gas THB 14.6 g/dl (12-18); Blood O2 Saturation 62.5 % (92-98.5)
[2024-10-25] MEDS ORDERED: TDAP (DIPHTH,PERTUSS(ACELL),TET VAC) 0.5 ML VIAL IMVAC ONE (19:09)
[2024-10-25 20:18] VITALS: TEMP 97.6
[2024-10-25 20:19] VITALS: BP 123/79; O2SAT 98
--- NOTE | 2024-10-28 12:08 | EKG ---
Test Date: 2024-10-25 Test Time: 17:00:56 Quilt Maker: DIANA MEASUREMENT RESULTS: Intervals: Rate: 64 [place]: 188 QRSD: 88 QT: 380 QTc: 392 [place]: P: 58 [place]: 188 QRS: 59 T: 41 INTERPRETIVE STATEMENTS: Normal sinus rhythm Low voltage QRS Borderline ECG Compared to ECG 10/06/2024 19:37:29 Sinus bradycardia no longer present Electronically Signed On 10-28-24 12:02:35 CDT by Edis Pham
== END 2024-10-25 19:27 | disposition short-term general hospital (02) ==
LOC: ER 15:07
DX: S60.221A Contusion of right hand, initial encounter (principal); E11.9 Type 2 diabetes mellitus without complications
CPT/HCPCS: 96365; 93005; 85025; 36415; 85610; 83605; 85730; 80053; 82010; 70450; 73130; 82805; 96375; 96372; 99285; J2003; J0295; J2405; J7030